=== PATIENT | female | born 1960 | race Caucasian/White ===

== ENCOUNTER 2017-05-17 05:31 | Inpatient (IN) | payer OTHER ==
[2017-05-16 09:45] VITALS: BMI 26.9
--- NOTE | 2017-05-16 11:16 | PREOPHP ---
DATE OF ADMISSION: HISTORY OF PRESENT ILLNESS: This is a 56-year-old female, 3, para 3. The patient with 2 living children. She had a home delivery of her 1st baby, 1 of the babies due to infections. She has a history of a pelvic prolapse grade 3-4 that has been happening and worsening for the last few years with the problems of being unbearable at this time. 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 She has a large mass that comes out of her vagina and interferes with her voiding. The patient has also pelvic pain during intercourse. She had a history of a left knee surgery, nose surgery, tubal ligation, and vertigo. ALLERGIES: SHE IS NOT ALLERGIC TO ANY MEDICATION. MEDICATIONS: She is on vertigo medication. FAMILY HISTORY: Noncontributory. PHYSICAL EXAMINATION: VITAL SIGNS: Stable. Blood pressure is 120/80, pulse is 80, respirations 16. She weighs 170. She is 5'4". HEENT: The head and neck is normal. BREASTS: Soft, nontender, no masses. CHEST: Clear. HEART: Normal sinus rhythm. BACK: Normal. ABDOMEN: Abdomen is soft, nontender, no masses. GENITOURINARY: Genitalia with a large uterovaginal complete prolapse grade 4, will also cystourethrocele, grade 4, uterus about 8 weeks' size. Adnexa negative. EXTREMITIES: Normal. DIAGNOSIS: Pelvic prolapse grade 4, uterovaginal prolapse, grade 4, urinary incontinence, constipation. She is undergoing a vaginal total hysterectomy, anterior and posterior colporrhaphy with as suburethral sling and a graft and possible bilateral fimbriectomy. The patient has been advised of the possible risks and possible complications of the procedure with her and alternatives and options. Written information was provided. She had no more questions, and agreed to go ahead with the procedure with full understanding and no more questions. Dictated By: Carrie Mena MD /jovanna/ /Document#: [id number]
[~2017-05-17] VITALS: Ht 162.6 cm; Wt 75.3 kg
[2017-05-17] VITALS (12 sets, daily range): BP systolic 94–107; BP diastolic 51–79; PULSE 59–70; RESP 18–20; Ht 162.6 cm; Wt 75.3 kg
[~2017-05-17 05:31] MED LIST: HEMOSTATIC MATRIX SYG INJ ONE
[2017-05-17] MEDS ORDERED: CEFAZOLIN 2 GM/50 ML (PMX) 50 ML IVPB ONE (06:00)
[2017-05-17] MEDS ORDERED: BUPIVACAINE 0.5%/EPI (SDV) 10 ML INJ ONE (06:51)
[2017-05-17] MEDS ORDERED: GLYCOPYRROLATE 0.4 MG INJ ONE (07:28)
[2017-05-17] MEDS ORDERED: MIDAZOLAM 1 MG/ML 2 ML INJ ONE (07:28)
[2017-05-17] MEDS ORDERED: CEFAZOLIN 1 GM INJ ONE (07:28)
[2017-05-17] MEDS ORDERED: ROCURONIUM 50 MG INJ ONE (07:28)
[2017-05-17] MEDS ORDERED: NEOSTIGMINE 3 MG/3 ML SYRINGE ONE (07:28)
[2017-05-17] MEDS ORDERED: PROPOFOL 20 ML ONE (07:28)
[2017-05-17] MEDS ORDERED: DEXAMETHASONE 4 MG/ML 1 ML INJ ONE (07:29)
[2017-05-17] MEDS ORDERED: ONDANSETRON 4 MG INJ ONE (07:29)
[2017-05-17] MEDS ORDERED: FENTAnyl 50 MCG/ML VIAL ONE (07:29)
[2017-05-17] MEDS ORDERED: morphine SULFATE/PF (10 MG/10 ML) INJ ONE (07:47)
--- NOTE | 2017-05-17 07:47 | HPN ---
Date/Time of Note Date/Time of Note DATE: 05/17/17 TIME: 07:47 Interval H&P Admission Note Pt. seen H&P reviewed: No system changes AUDREY JEWELL MD May 17, 2017 07:47
[2017-05-17] MEDS ORDERED: OXYCODONE/ACETAMINOPHEN (5/325) TAB PO PRN ×2 (08:30)
[2017-05-17] MEDS ORDERED: ALBUTEROL 0.083% (NEB) 2.5 MG/3 ML AMP HHN PRN (08:30)
[2017-05-17] MEDS ORDERED: FENTAnyl 50 MCG/ML VIAL IV PRN ×3 (08:30)
[2017-05-17] MEDS ORDERED: KETOROLAC 30 MG INJ IV PRN ×2 (08:30)
[2017-05-17] MEDS ORDERED: EPHEDrine SULFATE 50 MG/5 ML SYG IV PRN (08:30)
[2017-05-17] MEDS ORDERED: NALBUPHINE HCL (10 MG/1 ML) INJ IV PRN ×2 (08:30)
[2017-05-17] MEDS ORDERED: ZOLPIDEM 5 MG TAB PO PRN ×3 (08:30→11:00)
[2017-05-17] MEDS ORDERED: TRIMETHOBENZAMIDE 100 MG/ML VIAL IM PRN ×3 (08:30)
[2017-05-17] MEDS ORDERED: MEPERIDINE 25 MG INJ IV PRN (08:30)
[2017-05-17] MEDS ORDERED: LABETALOL HCL 20MG INJ IV PRN (08:30)
[2017-05-17] MEDS ORDERED: morphine 4 MG/ML VIAL IV PRN ×2 (08:30)
[2017-05-17] MEDS ORDERED: MIDAZOLAM 1 MG/ML 2 ML INJ IV PRN (08:30)
[2017-05-17] MEDS ORDERED: NALOXONE (0.4 MG/ML) INJ IV PRN ×2 (08:30)
[2017-05-17] MEDS ORDERED: HYDROmorphONE (0.2 MG/ML) 10ML SYG IV PRN ×3 (08:30)
[2017-05-17] MEDS ORDERED: ONDANSETRON 4 MG INJ IV PRN ×4 (08:30→11:00)
[2017-05-17] MEDS ORDERED: hydrALAzine 20 MG INJ IV PRN (08:30)
[2017-05-17] MEDS ORDERED: DIPHENHYDRAMINE 50 MG INJ IV PRN ×3 (08:30)
[2017-05-17] MEDS ORDERED: IPRATROPIUM (NEB) 0.5 MG/2.5 ML AMP HHN PRN (08:30)
[2017-05-17] MEDS ORDERED: morphine 2 MG INJ IV PRN ×2 (08:30)
[2017-05-17] MEDS ORDERED: POLYMYXIN/BACITRACIN 1L IRRIG ONE (09:26)
[2017-05-17] MEDS ORDERED: SUGAMMADEX SODIUM 200 MG/2 ML VIAL IV ONE (09:53)
[2017-05-17] MEDS ORDERED: METOCLOPRAMIDE 10 MG INJ ONE (10:02)
[2017-05-17] MEDS ORDERED: HYDROmorphONE 1 MG/ML SYG SC PRN (11:00)
[2017-05-17] MEDS ORDERED: HYDROCODONE/APAP (5/325) TAB PO PRN ×2 (11:00)
[2017-05-17] MEDS ORDERED: METOCLOPRAMIDE 10 MG INJ IV PRN (11:00)
--- NOTE | 2017-05-17 12:32 | OPR ---
DATE OF OPERATION: 05/17/2017 PROCEDURES DONE: 1. Vaginal total hysterectomy. 2. Optic sling posterior repair. 3. Bilateral salpingectomy. 4. Fulguration, right ovarian cyst. PREOPERATIVE DIAGNOSES: 1. Complete uterovaginal prolapse. 2. Urinary stress incontinence. 3. Constipation. 4. Pelvic pain. POSTOPERATIVE DIAGNOSES: 1. Complete uterovaginal prolapse. 2. Urinary stress incontinence. 3. Constipation. 4. Pelvic pain. 5. Bilateral hydrosalpinx. 6. Right ovarian cyst. SURGEON: Carrie Mena MD AUTOMATIC PILOT MECHANIC: Adam Gomez MD ANESTHESIA: Dr. with general and Duramorph. OPERATION PERFORMED: The patient was given Duramorph anesthesia and general anesthesia, placed in the lithotomy position. The perineal vaginal area was prepped and draped, and the examination under anesthesia revealed that the patient has a complete uterovaginal prolapse with the cervix outside the vaginal wall. The cervix was held with Jonatan clamps, and a circular incision was made after injection of Xylocaine and epinephrine at the cervicovaginal junction. The anterior cul-de-sac was found, and the posterior cul-de-sac was found, the cardinal ligaments and uterosacral ligaments and uterine vessels. Uterine arteries were fulgurated with the LigaSure instrument at 3 levels. The uterus was inverted, and the adnexal pedicle was clamped with Niru clamps, and the uterus was removed. The adnexal clamps were sutured with [id number] sutures with number 1 Vicryl, and the stumps were held. At this time, the evaluation of the ovaries revealed that there was a right ovarian cyst that was follicular that was fractured with the cautery, and there was a left paratubal cyst as well that was ruptured with the cautery. Both pieces of the tube that had hydrosalpinx were removed with the LigaSure instrument, and hemostasis was good. Peritonealization of the cavity was done with a pursestring suture with 2-0 Vicryl, and the cavity was closed. The stumps from the cardinal ligaments and from the adnexal pedicles were tied to ipsilateral side, and a good lift of the vaginal vault was observed. The vagina was closed with 2-0 Vicryl suture and 0 Vicryl suture with interrupted stitches. At this time, a Grullon catheter was placed in, and clear urine was seen. A midline incision was made 2 cm below the urethral meatus. Injection with Xylocaine and epinephrine was given under the vaginal mucosa the ureter from the anterior vaginal wall. The cystocele was very mild, so it was not plicated. The dissection was done laterally to the internal obturator muscle in both sides, and the location of the needle entrance was done and was marked down with the pen, and the optics needle was passed into the area that is 2 cm below the adductor longus tendon parallel to the cicatrix where the incision had been made on the skin. The needle was passed through and was retrieved para- ureterally where the sling was attached to the needle, and this was done in both sides. When the needle was retrieved back, the arm of the sling went through the obturator membrane all the way to the skin. The adjustment of the sling was done after applying ACell and Xenform graft underneath the area of the ureteral area, and then the sling was adjusted against this and then on top of it. Also, a piece of ACell and Xenform graft was left to cover up the sling for prevention of protrusion. There was no active bleeding. The grafts were fixed with a 2-0 Vicryl suture to the underneath structures. The vagina was closed with interrupted sutures with 2-0 Vicryl. The sling was trimmed at the level of the skin, and Dermabond was placed on top of the incision of the needle, and this was done in both sides. Now, a triangular incision was made at the perineum, and this portion of the skin was removed. The vagina was also injected again with Xylocaine and epinephrine up to about 7 cm up the vaginal canal. The rectum was from the posterior vaginal mucosa. A plication of the rectocele was done with interrupted sutures with 2-0 Vicryl, and the excess of the vaginal mucosa was trimmed and closed with 2-[address] up to the perineum. The perineal area was closed with a number 0 Vicryl, lifting the levator ani, and the rest of the perineum was closed as a regular episiotomy with 2-0 Vicryl and 3-0 Vicryl. Xeroform gauze was left in the vagina to reapply the tissues up the vaginal canal. The patient tolerated the procedure well and left the OR awake and stable. Sponge counts and instrument counts were correct. Intravenous antibiotics were given for prophylaxis. ESTIMATED BLOOD LOSS: About 100 mL, and the urine was clear at the end of the procedure. Dictated By: Carrie Mena MD /[email or web address]/ann /Document#: [id number]
[2017-05-17] MEDS: CEFAZOLIN 1 GM/50 ML (PMX) 50 ML IVPB SCH ×2 (13:05→21:26)
[2017-05-17] MEDS: KETOROLAC 30 MG INJ IV SCH ×3 (13:05→23:18)
[2017-05-17] MEDS: DEXTROSE 5%-LR 1,000 ML IV SCH ×2 (14:00→21:26)
[2017-05-18] VITALS: BP 91/53; RESP 19
[2017-05-18] MEDS: CEFAZOLIN 1 GM/50 ML (PMX) 50 ML IVPB SCH (05:01)
[2017-05-18] MEDS: DEXTROSE 5%-LR 1,000 ML IV SCH (05:01)
[2017-05-18] MEDS: KETOROLAC 30 MG INJ IV SCH ×4 (05:01→22:55)
[2017-05-18 06:11] LABS: BASOPHILS % 0.1 % (0.0-2.0); HEMATOCRIT 35.6 % (37.0-47.0); HEMOGLOBIN 11.8 g/dl (12.0-16.0); LYMPHOCYTES # 1.3 10^3/ul (0.8-2.9); LYMPHOCYTES % 8.9 % (15.0-51.0); MEAN CORPUSCULAR HEMOGLOBIN 29.4 pg (29.0-33.0); MEAN CORPUSCULAR HGB CONC 33.1 g/dl (32.0-37.0); MEAN CORPUSCULAR VOLUME 88.6 fl (82.0-101.0); MEAN PLATELET VOLUME 9.7 fl (7.4-10.4); MONOCYTE # 0.8 10^3/ul (0.3-0.9); MONOCYTES % 5.4 % (0.0-11.0); NEUTROPHILS % 85.1 % (39.0-77.0); PLATELET COUNT 271 10^3/UL (140-415); RED BLOOD COUNT 4.02 10^6/ul (4.20-5.40); RED CELL DISTRIBUTION WIDTH 12.8 % (11.5-14.5); WHITE BLOOD COUNT 14.6 10^3/ul (4.8-10.8)
[2017-05-18 06:25] LABS: CREATININE 0.71 mg/dl (0.44-1.00); POTASSIUM 3.7 mmol/L (3.5-5.1)
[2017-05-18 07:59] VITALS: BP 91/54; RESP 19
[2017-05-18 12:51] VITALS: BP 98/57; RESP 18
--- NOTE | 2017-05-18 14:43 | PN ---
Date/Time of Note Date/Time of Note DATE: 05/18/17 TIME: 14:40 Assessment/Plan Lines/Catheters IV Catheter Type (from Nrsg): Peripheral IV Allen in Place (from Nrsg): No Subjective 24 Hr Interval Summary DAY 1 POSTOP AFEBRILE FEELS GOOD ALLEN OUT AND PACKING OUT NO ACTIVE BLEEDING ENCOURAGED AMBULATION HOME AFTER PASSING GASES IN AM Constitutional: BM, ambulates, flatus, improved, no complaints, urine output Feeding: advancing diet Pain Control: well controlled Detailed Summary Eyes: no complaints ENT: no complaints Respiratory: no complaints Cardiovascular: no complaints Gastrointestinal: no complaints Genitourinary: no complaints Musculoskeletal: no complaints Skin: no complaints Neurologic: no complaints Endocrine: no complaints Lymphatic: no complaints Psychological: nl mood/affect, no complaints Immunologic: no complaints Exam/Review of Systems Vital Signs Vitals Vital Signs Date Time Temp Pulse Resp B/P Pulse Ox O2 Delivery O2 Flow Rate FiO2 05/18/17 12:51 99.1 57 18 98/57 98 05/17/17 16:00 Room Air Intake and Output 05/17/17 05/17/17 05/18/17 15:00 23:00 07:00 Intake Total 50 ml 1250 ml 1300 ml Output Total 100 ml 1200 ml 1300 ml Balance -50 ml 50 ml 0 ml Exam Constitutional: alert, oriented, well developed Psych: nl mood/affect, no complaints Head: atraumatic, normocephalic Eyes: EOMI, nl conjunctiva, nl lids, nl sclera ENMT: mucosa pink and moist, nl external ears & nose, nl lips & teeth, nl nasal mucosa & septum Neck: non-tender, supple Respiratory: clear to auscultation, normal air movement Cardiovascular: nl pulses, regular rate and rhythm Gastrointestinal: nl liver, spleen, non-tender, soft Musculoskeletal: nl extremities to inspection, nl gait and stance Extremities: normal pulses Neurological: STUNT MAN II-XII intact, nl mental status, nl speech, nl strength Skin: nl turgor, rash or lesions Lymph: nl lymph nodes Results Result Diagram: 05/18/17 0459 05/18/17 0459 AUDREY JEWELL MD May 18, 2017 14:42
[2017-05-18] MEDS ORDERED: BISACODYL (EC) 5 MG TAB PO ONE (15:00)
[2017-05-18 20:15] VITALS: BP 116/69; RESP 20
[2017-05-19 02:47] VITALS: BP 118/60; RESP 18
[2017-05-19 05:27] LABS: WHITE BLOOD COUNT 9.3 10^3/ul (4.8-10.8)
[2017-05-19 05:28] LABS: BASOPHIL # 0.1 10^3/ul (0.0-0.1); BASOPHILS % 0.5 % (0.0-2.0); EOSINOPHILS # 0.1 10^3/ul (0.0-0.5); HEMATOCRIT 35.4 % (37.0-47.0); HEMOGLOBIN 11.3 g/dl (12.0-16.0); LYMPHOCYTES # 2.1 10^3/ul (0.8-2.9); LYMPHOCYTES % 22.5 % (15.0-51.0); MEAN CORPUSCULAR HEMOGLOBIN 28.4 pg (29.0-33.0); MEAN CORPUSCULAR HGB CONC 31.9 g/dl (32.0-37.0); MEAN CORPUSCULAR VOLUME 88.9 fl (82.0-101.0); MEAN PLATELET VOLUME 9.6 fl (7.4-10.4); MONOCYTE # 0.5 10^3/ul (0.3-0.9); MONOCYTES % 5.5 % (0.0-11.0); NEUTROPHILS % 70.2 % (39.0-77.0); PLATELET COUNT 243 10^3/UL (140-415); RED BLOOD COUNT 3.98 10^6/ul (4.20-5.40); RED CELL DISTRIBUTION WIDTH 13.4 % (11.5-14.5)
[2017-05-19] MEDS: KETOROLAC 30 MG INJ IV SCH (05:28)
[2017-05-19 08:08] VITALS: BP 118/60; RESP 18
--- NOTE | 2017-05-19 10:05 | PD.PPDC ---
CUSTOMER SECURITY CLERK Discharge Instruction Provider Information Physician Information FINAL DIAGNOSIS IS COMPLETE UTEROVAGINAL PROLAPSE Condition Patient Condition: Good Diet Diet: Resume Regular Diet Activity/Restrictions Activity: Normal Activity May Shower Restrictions: No Exercising No Lifting No Driving No Sexual Activity Nothing in the Vagina No [place] No Tampons, douche Follow-up Follow-up with Physician: 2, Week/Weeks Return to clinic for PIPING DESIGN SPECIALIST Instructions: Fever greater than 101 Chills Worsening abdominal pain Excessive Vaginal Bleeding More than 2 pads per hour Unable to tolerate diet AUDREY JEWELL MD May 19, 2017 10:05
--- NOTE | 2017-05-20 14:20 | DS ---
DATE OF ADMISSION: 05/17/2017 DATE OF DISCHARGE: 05/19/2017 PREOPERATIVE DIAGNOSIS: Complete uterovaginal prolapse with urinary incontinence, rectocele, and constipation. FINAL DIAGNOSES: 1. Complete uterovaginal prolapse. 2. Urinary incontinence. 3. Rectocele. 4. Constipation. PROCEDURES DONE: Vaginal total hysterectomy, subureteral sling with A and P repair and ACell and Xenform graft. COMPLICATIONS: None. HISTORY OF PRESENT ILLNESS: This is a 56-year-old female, 3, para 3. This patient had been diagnosed with a pelvic prolapse, grade 4, which is the uterus and at stage 4 coming out of the vulva. The patient had incontinence and also rectal bowel movement difficulties and she underwent a vaginal hysterectomy, sling and graft. She had no complications and she started voiding the next day. She had a bowel movement on the 2nd postoperative day. She was ambulatory, tolerating diet, afebrile, stable, with no active bleeding. No difficulty voiding or bowel movements at the time of discharge. She was with pain control and she was sent home on Tylenol No. 3, and ibuprofen p.r.n. She was to see me in the office in a week or earlier if she had any problems. She left the hospital stable and in good condition. Dictated By: Carrie Mena MD /[email or web address]/percy /Document#: [id number]
== END 2017-05-19 13:34 | disposition home or self-care (01) | DRG 743 ==
LOC: SDS 05:31 → REC 05:32 → SDS 05:32 → MS1 11:41
PROVIDERS: ADMIT Obstetrics & Gynecology; ATTEND Obstetrics & Gynecology
PROC: 0UTC7ZZ Resection of Cervix, Via Natural or Artificial Opening (ICD-10-PCS; 2017-05-17)
PROC: 0UT77ZZ Resection of Bilateral Fallopian Tubes, Via Natural or Artificial Opening (ICD-10-PCS; 2017-05-17)
PROC: 0UB07ZZ Excision of Right Ovary, Via Natural or Artificial Opening (ICD-10-PCS; 2017-05-17)
PROC: 0TSD0ZZ Reposition Urethra, Open Approach (ICD-10-PCS; 2017-05-17)
PROC: 0JQC0ZZ Repair Pelvic Region Subcutaneous Tissue and Fascia, Open Approach (ICD-10-PCS; 2017-05-17)
PROC: 0UT97ZZ Resection of Uterus, Via Natural or Artificial Opening (ICD-10-PCS; principal; 2017-05-17 07:30)
DX: N81.3 Complete uterovaginal prolapse (principal); K59.00 Constipation, unspecified; N39.3 Stress incontinence (female) (male); N70.11 Chronic salpingitis; N83.201 Unspecified ovarian cyst, right side
CPT/HCPCS: 80051; 82565; 84520; 85025; 86850; 86900; 86901; 86920; 88305; C1771; C1781; J0690; J1100; J1885; J2250; J2274; J2405; J2710; J2765; J3010; J7121; Q4166